=== PATIENT | female | born 1960 | race African-American/Black ===

== ENCOUNTER 2018-10-08 07:30 | Emergency (ER) | payer OTHER ==
[2018-10-08] MEDS ORDERED: Ketorolac Tromethamine 30 MG/ML VIAL ONE (08:24)
== END 2018-10-08 08:42 | disposition home or self-care (01) ==
LOC: ERS 07:30
DX: M62.830 Muscle spasm of back (principal); E11.9 Type 2 diabetes mellitus without complications; I25.2 Old myocardial infarction; M32.9 Systemic lupus erythematosus, unspecified
CPT/HCPCS: 96372; J1885

== ENCOUNTER 2019-08-14 09:13 | Outpatient (CLI) | payer OTHER ==
--- NOTE | 2019-08-23 13:32 | MMO ---
Bilateral MAMMO Bilat Screen [facility]. CLINICAL HISTORY: Patient is 59 years old and is seen for screening. The patient has no family history of breast cancer. The patient has no personal history of cancer. VIEWS: The views performed were: bilateral craniocaudal with tomosynthesis; bilateral mediolateral oblique with tomosynthesis; and left craniocaudal. FILMS COMPARED: The present examination has been compared to prior imaging studies performed at [facility] on 08/22/2014, 09/23/2015, 09/26/2016 and 11/01/2017. This study has been interpreted with the assistance of computer-aided detection. MAMMOGRAM FINDINGS: There are scattered fibroglandular densities. There are no suspicious masses, suspicious calcifications, or new areas of architectural distortion. IMPRESSION: THERE IS NO MAMMOGRAPHIC EVIDENCE OF MALIGNANCY. A ROUTINE FOLLOW-UP MAMMOGRAM IN 1 YEAR IS RECOMMENDED. THE RESULTS OF THIS EXAM WERE SENT TO THE PATIENT. ACR BI-RADS Category 1 - Negative MAMMOGRAPHY NOTE: 1. A negative mammogram report should not delay a biopsy if a dominant of clinically suspicious mass is present. 2. Approximately 10% to 15% of breast cancers are not detected by mammography. 3. Adenosis and dense breasts may obscure an underlying neoplasm. Reported by: LULI SPEAR MD Electonically Signed: [id number]
== END 2019-08-14 09:14 | disposition home or self-care (01) ==
LOC: BICMAMMO 09:13
PROVIDERS: ATTEND Family Medicine
DX: Z12.31 Encounter for screening mammogram for malignant neoplasm of breast (principal)
CPT/HCPCS: 77063; 77067

== ENCOUNTER 2019-08-14 10:12 | Outpatient (CLI) | payer OTHER ==
--- NOTE | 2019-08-14 10:28 | RAD ---
EXAM: Right shoulder 3 views: HISTORY: Right shoulder pain COMPARISON: None FINDINGS: Probable small focus of calcific peritendonosis. Degenerative changes. No acute fracture or dislocation or other significant acute osseous abnormality. IMPRESSION: No significant acute process.
== END 2019-08-14 10:13 | disposition home or self-care (01) ==
LOC: BICRAD 10:12
PROVIDERS: ATTEND Family Medicine
DX: M25.511 Pain in right shoulder (principal)

== ENCOUNTER 2019-12-02 09:29 | Outpatient (CLI) | payer OTHER ==
--- NOTE | 2019-12-02 09:57 | BD ---
DEXA bone mineral densitometry study HISTORY: 59-year-old postmenopausal female for screening COMPARISON: None FINDINGS: L1--bone mineral density 0.963 g/sq cm; T score -0.2 L2--bone mineral density 0.905 g/sq cm; T score -1.1 L3--bone mineral density 0.959 g/sq cm; T score -1.1 L4--bone mineral density 0.956 g/sq cm; T score -1.0 Total L1-L4--bone mineral density 0.947 g/sq cm; T score -0.9 Left femoral neck--bone mineral density0.75 g/sq cm; T score -0.9 Total proximal left femur--bone mineral density 0.92 g/sq cm ; T score -0.2 IMPRESSION: 1. Normal bone mineralization of the lumbar spine and left femoral neck.
--- NOTE | 2019-12-02 10:30 | RAD ---
Exam: XR Ankle Lt 3 View STANDARD HISTORY: Left ankle swelling. No known injury. COMPARISON: None FINDINGS: The ankle mortise is congruent. Small plantar calcaneal enthesophyte is noted. Minimal degenerative c hanges are seen involving the tarsal bones. No acute fracture, dislocation, or other acute osseous abnormality is identified. IMPRESSION: No acute osseous abnormality is identified.
== END 2019-12-02 09:30 | disposition home or self-care (01) ==
LOC: BICMAMMO 09:29
PROVIDERS: ATTEND Internal Medicine Rheumatology
DX: Z13.820 Encounter for screening for osteoporosis (principal); M25.472 Effusion, left ankle; M32.9 Systemic lupus erythematosus, unspecified; D69.49 Other primary thrombocytopenia; M85.88 Other specified disorders of bone density and structure, other site; Z71.3 Dietary counseling and surveillance; Z92.25 Personal history of immunosuppression therapy
CPT/HCPCS: 77080

== ENCOUNTER 2020-07-26 07:04 | Emergency (ER) | payer OTHER ==
[2020-07-26] MEDS ORDERED: Ketorolac Tromethamine 30 MG/ML VIAL ONE (07:39)
[2020-07-26] MEDS ORDERED: Morphine 4 MG/ML VIAL ONE (07:39)
[2020-07-26] MEDS ORDERED: Ondansetron PF 4 MG/2 ML Vial ONE (08:22)
--- NOTE | 2020-07-26 08:27 | RAD ---
RIGHT SHOULDER THREE VIEWS: INDICATIONS: Shoulder pain. FINDINGS: No evidence of fracture or dislocation. AC joint normally aligned. IMPRESSION: No acute findings. POS: AGW
[2020-07-26 08:29] LABS: #Basophils 0.1 thou/uL (0.0-0.2); #Eosinphils 0.3 thou/uL (0.0-0.7); #Lymphocytes 5.3 thou/uL (1.20-3.40); #Monocytes 1.4 thou/uL (0.11-0.59); #Neutrophils 9.5 thou/uL (1.40-6.50); %Basophils 0.5 % (0.0-1.0); %Eosinophils 1.7 % (0.0-10.0); %Monocytes 8.5 % (0.0-10.0); %Neutrophils 57.3 % (42.0-75.0); Hemoglobin 15.3 g/dL (12.0-16.0); Mean Corpuscular HGB CONC 33.2 g/dL (32.0-36.0); Mean Corpuscular Hemoglobin 31.7 pg (27.0-31.0); Mean Corpuscular Volume 95.6 fL (78.0-98.0); Mean Platelet Volume 9.8 fL (7.4-10.4); Platelet Count 161 thou/uL (130-400); RBC Distribution Width 11.9 % (11.5-14.5); Red Blood Cell (RBC) Count 4.82 mill/uL (4.20-5.40); White Blood Cell (WBC) Count 16.5 thou/uL (4.8-10.8)
--- NOTE | 2020-07-26 08:29 | CT ---
CT cervical spine noncontrast HISTORY: Neck pain with right arm radiculopathy. FINDINGS: There is straightening of the normal lordotic curvature. Vertebral body heights are maintai shantell. Cervicothoracic junction is intact. No acute fracture, dislocation, or aggressive osseous erosions. Very mild osteophytosis. No disc herniation or significant foraminal stenoses. IMPRESSION : Minimal degenerative changes. No significant abnormalities are demonstrated.
[2020-07-26 08:34] LABS: ALT (SGPT) 15 U/L (8-55); AST (SGOT) 17 U/L (5-34); Albumin 4.4 g/dL (3.5-5.0); Alkaline Phosphatase 107 U/L (40-110); Anion Gap 15 mmol/L (10-20); BUN (Urea Nitrogen) 12 mg/dL (9.8-20.1); Bilirubin, Total 0.5 mg/dL (0.2-1.2); Calc. Creatinine Clearance 0 mL/min (70-130); Calcium 9.4 mg/dL (7.8-10.44); Carbon Dioxide 22 mmol/L (22-29); Chloride 105 mmol/L (98-107); Estimated GFR-MDRD 88; Globulin 3.6 g/dL (2.4-3.5); Glucose 102 mg/dL (70-105); Lipase 8 U/L (8-78); Potassium 4.2 mmol/L (3.5-5.1); Sodium 138 mmol/L (136-145)
--- NOTE | 2020-07-26 08:55 | RAD ---
PORTABLE CHEST: HISTORY: Shoulder and chest pain. COMPARISON: 12/14/2015 FINDINGS: The lungs are clear. The heart and mediastinum are unremarkable. The osseous structures are unremarka ble. IMPRESSION: No acute findings. POS: AGW
== END 2020-07-26 09:21 | disposition home or self-care (01) ==
LOC: ERS 07:04
DX: M75.31 Calcific tendinitis of right shoulder (principal); E11.9 Type 2 diabetes mellitus without complications; I25.2 Old myocardial infarction; Z79.899 Other long term (current) drug therapy; Z79.82 Long term (current) use of aspirin; Z79.84 Long term (current) use of oral hypoglycemic drugs
CPT/HCPCS: 71045; 72125; 80053; 83690; 84484; 85025; 93005; 96374; 96375; J1885; J2270; J2405

== ENCOUNTER 2020-09-22 15:01 | Outpatient (CLI) | payer OTHER ==
--- NOTE | 2020-09-22 16:26 | MMO ---
Bilateral MAMMO Bilat Screen [facility]. CLINICAL HISTORY: Patient is 60 years old and is seen for screening. The patient has no family history of breast cancer. The patient has no personal history of cancer. VIEWS: The views performed were: bilateral craniocaudal with tomosynthesis and bilateral mediolateral oblique with tomosynthesis. FILMS COMPARED: The present examination has been compared to prior imaging studies performed at [facility] on 08/14/2019, and at [facility] on 09/23/2015, 09/26/2016 and 11/01/2017. This study has been interpreted with the assistance of computer-aided detection. MAMMOGRAM FINDINGS: There are scattered fibroglandular densities. There are stable benign appearing calcifications seen in both breasts. There are no suspicious masses, suspicious calcifications, or new areas of architectural distortion. IMPRESSION: THERE IS NO MAMMOGRAPHIC EVIDENCE OF MALIGNANCY. A ROUTINE FOLLOW-UP MAMMOGRAM IN 1 YEAR IS RECOMMENDED. THE RESULTS OF THIS EXAM WERE SENT TO THE PATIENT. ACR BI-RADS Category 2 - Benign finding MAMMOGRAPHY NOTE: 1. A negative mammogram report should not delay a biopsy if a dominant of clinically suspicious mass is present. 2. Approximately 10% to 15% of breast cancers are not detected by mammography. 3. Adenosis and dense breasts may obscure an underlying neoplasm. Reported by: WHITNEY QUEEN MD Electonically Signed: [id number]
== END 2020-09-22 15:02 | disposition home or self-care (01) ==
LOC: BICMAMMO 15:01
PROVIDERS: ATTEND Family Medicine
DX: Z12.31 Encounter for screening mammogram for malignant neoplasm of breast (principal)
CPT/HCPCS: 77063; 77067

== ENCOUNTER 2023-08-25 08:41 | Outpatient (CLI) | payer BC | END 2023-08-25 08:42 | disposition home or self-care (01) | LOC: BICMAMMO 08:41 | PROVIDERS: ATTEND Family Medicine | DX: Z12.31 Encounter for screening mammogram for malignant neoplasm of breast (principal) | CPT/HCPCS: 77063; 77067 ==

== ENCOUNTER 2023-10-01 19:54 | Emergency (ER) | payer BC ==
[2023-10-01] MEDS ORDERED: Lidocaine 1% PF 5 ML VIAL ONE (21:04)
[2023-10-01] MEDS ORDERED: Boostrix 0.5 ML (Tdap) VIAL (>/=7 yrs of age) ONE (21:47)
[2023-10-01] MEDS ORDERED: Bacitracin 1 PK ONE (21:56)
== END 2023-10-01 22:20 | disposition home or self-care (01) ==
LOC: ERS 19:54
DX: S61.216A Laceration without foreign body of right little finger without damage to nail, initial encounter (principal); Z23 Encounter for immunization; E11.9 Type 2 diabetes mellitus without complications; Z79.84 Long term (current) use of oral hypoglycemic drugs; Z79.82 Long term (current) use of aspirin; W26.9XXA Contact with unspecified sharp object(s), initial encounter
CPT/HCPCS: 12001; 90471; 90715; 99282

== ENCOUNTER 2023-10-09 10:38 | Emergency (ER) | payer BC | END 2023-10-09 10:58 | disposition home or self-care (01) | LOC: ERS 10:38 | DX: S61.216D Laceration without foreign body of right little finger without damage to nail, subsequent encounter (principal) ==

== ENCOUNTER 2024-08-26 08:08 | Outpatient (CLI) | payer OTHER | END 2024-08-26 08:09 | disposition home or self-care (01) | LOC: BICMAMMO 08:08 | PROVIDERS: ATTEND Family Medicine | DX: Z12.31 Encounter for screening mammogram for malignant neoplasm of breast (principal) | CPT/HCPCS: 77063; 77067 ==

== ENCOUNTER 2024-09-04 20:42 | Observation (INO) | payer OTHER ==
[2024-09-04 21:32] LABS: #Basophils 0.06 10x3/uL (0.0-0.2); %Basophils 0.4 % (0.0-1.0); %Eosinophils 2.4 % (0.0-10.0); %Monocytes 10.4 % (0.0-10.0); %Neutrophils 44.4 % (42.0-75.0); Hematocrit 42.9 % (36.0-47.0); Hemoglobin 14.3 g/dL (12.0-16.0); Mean Corpuscular HGB CONC 33.3 g/dL (32.0-36.0); Mean Corpuscular Hemoglobin 30.8 pg (27.0-31.0); Mean Corpuscular Volume 92.3 fL (78.0-98.0); Platelet Count 176 10x3/uL (130-400); RBC Distribution Width 14.2 % (11.5-14.5); Red Blood Cell (RBC) Count 4.65 mill/uL (4.20-5.40)
[2024-09-04 21:55] LABS: ALT (SGPT) 15 U/L (8-55); AST (SGOT) 19 U/L (5-34); Albumin 3.9 g/dL (3.4-4.8); Alkaline Phosphatase 114 U/L (40-110); Anion Gap 14 mmol/L (10-20); BUN (Urea Nitrogen) 14 mg/dL (9.8-20.1); Bilirubin, Total 0.2 mg/dL (0.2-1.2); Calc. Creatinine Clearance 0 mL/min (70-130); Calcium 9.6 mg/dL (7.8-10.44); Carbon Dioxide 22 mmol/L (23-31); Chloride 107 mmol/L (98-107); Estimated GFR 87; Globulin 3.6 g/dL (2.4-3.5); Glucose 103 mg/dL (80-115); Protein, Total 7.5 g/dL (5.8-8.1); Sodium 139 mmol/L (136-145)
[2024-09-04 21:56] LABS: Troponin I Less than 0.010 ng/mL (< 0.028)
[2024-09-04] MEDS ORDERED: Aspirin Chewable 81 MG TAB ONE (22:34)
[2024-09-04] MEDS ORDERED: Acetaminophen 500 MG TAB ONE (22:52)
[2024-09-04] MEDS ORDERED: Acetaminophen 650 MG Suppository PR PRN (23:54)
[2024-09-04] MEDS ORDERED: Ondansetron ODT 4 MG TAB PO PRN (23:54)
[2024-09-04] MEDS ORDERED: Ondansetron PF 4 MG/2 ML Vial IVP PRN (23:54)
[2024-09-04] MEDS ORDERED: Acetaminophen 325 MG TAB PO PRN (23:54)
[2024-09-05 00:31] VITALS: BMI 36.3
[2024-09-05] MEDS ORDERED: Atorvastatin Calcium 40 MG TAB ONE (00:43)
[2024-09-05] MEDS ORDERED: Famotidine 20 MG TAB ONE ×2 (00:44→12:38)
[2024-09-05] MEDS: Atorvastatin Calcium 40 MG TAB PO SCH (00:46)
[2024-09-05] MEDS: Famotidine 20 MG TAB PO SCH ×2 (00:47→12:48)
[2024-09-05 01:21] LABS: Troponin I Less than 0.010 ng/mL (< 0.028)
[2024-09-05 03:28] LABS: #Basophils 0.05 10x3/uL (0.0-0.2); %Basophils 0.4 % (0.0-1.0); %Eosinophils 2.2 % (0.0-10.0); %Lymphocytes 46.6 % (21.0-51.0); %Monocytes 11.1 % (0.0-10.0); %Neutrophils 39.4 % (42.0-75.0); Hematocrit 41.4 % (36.0-47.0); Hemoglobin 13.6 g/dL (12.0-16.0); Mean Corpuscular HGB CONC 32.9 g/dL (32.0-36.0); Mean Corpuscular Hemoglobin 31.1 pg (27.0-31.0); Mean Corpuscular Volume 94.5 fL (78.0-98.0); Mean Platelet Volume 11.3 fL (7.4-10.4); Platelet Count 174 10x3/uL (130-400); RBC Distribution Width 14.1 % (11.5-14.5); Red Blood Cell (RBC) Count 4.38 mill/uL (4.20-5.40)
[2024-09-05 04:02] LABS: Hemoglobin A1c 6.3 % (4.0-6.0)
[2024-09-05 04:06] LABS: Anion Gap 12 mmol/L (10-20); BUN (Urea Nitrogen) 13 mg/dL (9.8-20.1); Calc. Creatinine Clearance 109 mL/min (70-130); Calcium 9.2 mg/dL (7.8-10.44); Carbon Dioxide 23 mmol/L (23-31); Cardiac Risk 3.1 (Less than 4.5); Chloride 107 mmol/L (98-107); Cholesterol 110 mg/dl (< 200 Desired); Estimated GFR 99; Glucose 106 mg/dL (80-115); HDL Cholesterol 36 mg/dL (>60 Neg Risk); LDL Cholesterol, Calculated 58 mg/dL; Potassium 3.7 mmol/L (3.5-5.1); Sodium 138 mmol/L (136-145); Triglycerides 81 mg/dL (Less than 150)
[2024-09-05 04:18] LABS: Troponin I 0.015 ng/mL (< 0.028)
[2024-09-05] MEDS ORDERED: Enoxaparin 40 MG (0.4 mL) SYRINGE SC SCH (09:00)
[2024-09-05] MEDS: Aspirin Chewable 81 MG TAB PO SCH (12:36)
[2024-09-05] MEDS ORDERED: Enoxaparin 40 MG (0.4 mL) SYRINGE ONE (12:38)
[2024-09-05] MEDS: Enoxaparin 40 MG (0.4 mL) SYRINGE SC SCH (12:47)
[2024-09-05 12:49] VITALS: BP 135/69
[2024-09-05 15:31] VITALS: TEMP 98.1
[2024-09-05] MEDS ORDERED: Atorvastatin Calcium 40 MG TAB PO SCH (21:00)
== END 2024-09-05 16:07 | disposition home or self-care (01) ==
LOC: ERS 20:42 → SUATTDRO 20:42 → ERHOLD 23:54
PROVIDERS: ADMIT Family Medicine; ATTEND Family Medicine
DX: R07.2 Precordial pain (principal); I25.10 Atherosclerotic heart disease of native coronary artery without angina pectoris; I10 Essential (primary) hypertension; E11.9 Type 2 diabetes mellitus without complications; E78.5 Hyperlipidemia, unspecified; Z95.1 Presence of aortocoronary bypass graft; Z88.5 Allergy status to narcotic agent; Z98.890 Other specified postprocedural states; Z95.5 Presence of coronary angioplasty implant and graft; Z90.49 Acquired absence of other specified parts of digestive tract; Z98.51 Tubal ligation status; Z90.89 Acquired absence of other organs; Z79.84 Long term (current) use of oral hypoglycemic drugs; Z79.899 Other long term (current) drug therapy; Z79.82 Long term (current) use of aspirin; Z88.1 Allergy status to other antibiotic agents; Z88.8 Allergy status to other drugs, medicaments and biological substances
CPT/HCPCS: 36415; 71045; 80048; 80053; 80061; 83036; 84443; 84484; 85025; 93005; 96372; G0378; J1650

== ENCOUNTER 2024-10-16 09:30 | Outpatient (CLI) | payer OTHER | END 2024-10-16 09:31 | disposition home or self-care (01) | LOC: MRI 09:30 | PROVIDERS: ATTEND Orthopaedic Surgery | DX: M70.61 Trochanteric bursitis, right hip (principal); R93.7 Abnormal findings on diagnostic imaging of other parts of musculoskeletal system; M89.9 Disorder of bone, unspecified ==

== ENCOUNTER 2025-09-10 13:02 | Outpatient (CLI) | payer OTHER | END 2025-09-10 13:03 | disposition home or self-care (01) | LOC: BICMAMMO 13:02 | PROVIDERS: ATTEND Family Medicine | DX: Z12.31 Encounter for screening mammogram for malignant neoplasm of breast (principal) | CPT/HCPCS: 77063; 77067 ==